=== PATIENT | female | born 1945 | race Caucasian/White ===

== ENCOUNTER 2021-03-14 17:16 | Emergency (ER) | payer MEDICARE, SELFPAY ==
[2021-03-14 17:29] VITALS: BP 211/113; PULSE 72; RESP 15; TEMP 36.8; O2SAT 98; BMI 28.8
[2021-03-14 18:00] VITALS: BP 187/98; PULSE 58; RESP 13; O2SAT 97
[2021-03-14 18:18] LABS: Basophils % 0.2 %; Eosinophils # 0.1 10^3/uL (0.0-0.8); Hematocrit 42.6 % (37.0-47.0); Hemoglobin 14.1 g/dL (11.5-15.3); Mean Corpuscular HGB Conc 33.1 g/dL (30.0-36.0); Mean Corpuscular Hemoglobin 34.3 pg (28.0-34.0); Mean Corpuscular Volume 103.6 fl (81-99); Monocytes # 0.5 10^3/uL (0.2-0.9); Monocytes % 9.9 %; Neutrophils # 2.37 10^3/uL (1.8-7.7); Neutrophils % 47.7 %; Nucleated Red Blood Cells % 0 %; Platelet Count 166 10^3/cmm (130-400); Red Blood Count 4.11 10^6/uL (4.1-5.3); Red Cell Distribution Width 13.1 % (12.1-15.1)
[2021-03-14 18:55] LABS: Anion Gap 14.7 (5-19); Blood Urea Nitrogen 12 mg/dL (8-23); Calcium 9.7 mg/dL (8.5-10.5); Carbon Dioxide 29 mmol/L (22-29); Chloride 98 mmol/L (98-107); Glucose 99 mg/dL (65-115); Osmolality Calculated 286 mOsm/kg (285-295); Potassium 3.7 mmol/L (3.5-5.1); Sodium 138 mmol/L (136-145)
--- NOTE | 2021-03-14 19:20 | W.ED.GENADLT ---
HPI - General Adult General: Chief complaint: General Medical Stated complaint: High Blood Pressure, sent by Clinic Time Seen by Provider: 03/14/21 17:49 History of Present Illness: HPI narrative: CC: Elevated BP HPI: [75]yo patient w/ x hx of HTN currently medically managed (baseline of 140/80), recent L eye cataract surgery presenting to the ED with complaints that her BP is not well controlled. Patient noticed today BP is uncontrolled at >200 systolic in outpatient family clinic. Of note patient started on occular steroid and is concerned that medicine is causing her symptoms. Denies chest pain, SOB, palpitation, N/V/D, pain radiating to the shoulder, headache, vision changes, LOC, or focal neurological deficits. Patient also denies light-headedness, syncope, vertigo abdominal pain, back pain. Tolerating PO meds without issues. Onset: chronic Duration: ongoing Location: home Severity: mild Review of Systems Narrative: Constitutional: No fever, no chills. HEENT: No vision changes CV: No chest pain, no palpitations PULM: No cough, no dyspnea. GI: No abdominal pain, no N/V/D. : No dysuria MSKEL: No edema SKIN: No new rashes, no lesions. NEURO: No headache, no focal weakness. HEME: No visible bruises PSYCH: Normal mood PFSH ED PFSH: Medical History (Updated 03/14/21 @ 19:18 by Moira Briscoe MD) Cataract Hypertensive urgency Social History (Updated 03/14/21 @ 15:55 by Cherri Freeman LPN) Smoking and tobacco status: never smoked Alcohol intake: current Alcohol intake frequency: 0-2 Drinks per Day Alcohol type: wine History of recent travel: No Physical Exam Narrative: EXAM NARRATIVE: Head: Atraumatic Eyes: PERRL, conjunctiva without injection, visual acuity 20/20 in both eyes ENT: Dry membrane moist NECK: Supple without lymphadenopathy LUNGS: LCTAB CV: RRR ABDOMEN: Soft, nontender EXTREMITY: Normal ROM, No track maria, moderate tremulous movements in the UE SKIN: No rash or erythema, no visible patches, no noticeable cellulitis NEURO: AAOX3, mildly agitated and moving all extremities PSYCH: Cooperative with exam Course Vital Signs: Vital signs: Vital Signs Temperature 98.2 F 03/14/21 17:29 Pulse Rate 69 03/14/21 19:38 Respiratory Rate 19 H 03/14/21 19:38 Blood Pressure 187/98 03/14/21 18:00 Pulse Oximetry 98 03/14/21 19:38 MDM - General Adult MDM Narrative: Medical decision making narrative: [75]yo patient w/ hx of HTN currently not on medicine, recent cataract surgery presenting to the ED with high BP reading from outpatient clinic. Rest of exam including full neuro exam intact. Normal visual acuity b/l. No focal occular findings. Given presentation, history and exam, I do not suspect aortic dissection, hypertensive encephalopathy, intracranial hemorrhage, ACS, TIA/CVA, flash pulmonary edema. Intervention: Amlodipine 5mg Patient continues to be symptom-free at this time. Do not suspect an emergent cause. Discussed with the patient the importance of logging BPs and following up with his PCP for adjustment of BP if BP continues to be persistently high. Lab wrokup within including creatine. BP improved to 180 systolic without any intervention. Patient is started on amlodipine 5mg in the ED. Given return instructions. Case was discussed with Dr. Polo from Opthalmology at 7:15pm who informs that there is no need for BP control in the setting of cataract surgery. Unlikely to be topical steroid induced HTN. Patient has no ocular symptoms including new onset of visual blurriness. Visual acuity unchanged in both eyes. Rx: Amlodipine 5mg QDaily x 30 days Based on history, exam, vital signs, and work up (as indicated) I do not suspect an ongoing emergent medical condition, and I believe the patient is safe for discharge and outpatient follow-up. The plan of care was discussed with the patient and all questions were answered. The patient agrees with the plan of care and is discharged in stable condition with verbal and written instructions, and verbalized understanding and ability to comply. I discussed the diagnosis and treatment plan at length with the patient. The patient understands signs and symptoms (including those which are new or worsening) which should prompt return to the ED. The patient is to seek prompt outpatient follow-up as noted verbally and/or in the discharge instructions. At the time of discharge the patient is well-appearing, well-hydrated, non-toxic, and assures appropriate follow-up as an outpatient. Lab Data: Labs: Lab Results 03/14/21 03/14/21 18:03 18:03 WBC 5.0 10^3/uL 10^3/ uL (4.0-10.0) RBC 4.11 10^6/uL 10^6 /uL (4.1-5.3) Hgb 14.1 g/dL g/dL (11.5-15.3) Hct 42.6 % % (37.0-47.0) MCV 103.6 fl H fl (81-99) MCH 34.3 pg H pg (28.0-34.0) MCHC 33.1 g/dL g/dL (30.0-36.0) RDW 13.1 % % (12.1-15.1) Plt Count 166 10^3/cmm 10^3 /cmm (130-400) MPV 11.0 fL H fL (7.4-10.4) Neut % (Auto) 47.7 % % Lymph % (Auto) 41.0 % % [place] % (Auto) 9.9 % % Eos % (Auto) 1.0 % % Baso % (Auto) 0.2 % % Neut # (Auto) 2.37 10^3/uL 10^3 /uL (1.8-7.7) Lymph # (Auto) 2.0 10^3/uL 10^3/ uL (0.8-4.8) [place] # (Auto) 0.5 10^3/uL 10^3/ uL (0.2-0.9) Eos # (Auto) 0.1 10^3/uL 10^3/ uL (0.0-0.8) Baso # (Auto) 0.0 10^3/uL 10^3/ uL (0.0-0.1) Nucleated RBC % (a uto) 0 % % Nucleated RBCs # 0.0 /100WBC /100W BC Sodium 138 mmol/L mmol/L (136-145) Potassium 3.7 mmol/L mmol/L (3.5-5.1) Chloride 98 mmol/L mmol/L (98-107) Carbon Dioxide 29 mmol/L mmol/L (22-29) Anion Gap 14.7 (5-19) BUN 12 mg/dL mg/dL (8-23) Creatinine 0.6 mg/dL mg/dL (0.5-0.9) GFR Calculation Not Reportable Glucose 99 mg/dL mg/dL (65-115) Calculated Osmolal ity 286 mOsm/kg mOsm/ kg (285-295) Calcium 9.7 mg/dL mg/dL (8.5-10.5) Discharge Plan Discharge Patient Disposition: Home Clinical Impression: Hypertension Condition: Stable Prescriptions: New amlodipine 5 mg tablet 5 mg PO DAILY PRN (Reason: elevated blood pressure) 30 Days Qty: 30 RF: 0 Discharge Orders: Discharge ED (Routine); Ordered 03/14/21 Ordered By: Moira Briscoe Discharge Diet: Advance as tolerated Discharge Activity: Resume usual activity Patient Instructions: Hypertension, Hypertension (ED) Activity Restrictions/Additional Instructions: Come back to the emergency room you have any worsening symptoms including uncontrolled blood pressure despite medication use, chest pain, focal weakness in the arms or legs, or any new or concerning complaints. Coding Level of Care Code ED Java Systems Analyst for Jae Michael
[2021-03-14] MEDS: amlodipine 5 mg Tablet PO (19:37)
[2021-03-14 19:38] VITALS: PULSE 69; RESP 19; O2SAT 98
--- NOTE | 2021-03-15 10:08 | DCPLANNER ---
Case manger had message to speak with patient about getting a primary care physician. resident manager spoke with patients , was told that patient has a primary care physician, and has a follow up appointment scheduled.
== END 2021-03-14 19:38 | disposition home or self-care (01) ==
PROVIDERS: Emergency Provider Emergency Medicine
DX: I10 Essential (primary) hypertension (principal)
CPT/HCPCS: 80048; 85025; 99283

== ENCOUNTER → 2021-12-31 11:13 | Outpatient (BNVA) | payer MEDICARE, SELFPAY | PROVIDERS: PCP Family Medicine; Visit Provider Family Medicine | DX: I10 Essential (primary) hypertension (principal); L57.0 Actinic keratosis; R01.1 Cardiac murmur, unspecified; R42 Dizziness and giddiness; T78.40XA Allergy, unspecified, initial encounter | CPT/HCPCS: 80053; 83735; 84443; 85025 ==

== ENCOUNTER 2022-03-20 13:49 | Outpatient (CLI) | payer MEDICARE, SELFPAY ==
--- NOTE | 2022-03-20 15:15 | USCV_ITS ---
Isabel Moise Age: 76 Gender: F : 1945 Exam Date: 03/20/2022 15:30 Ordering Phys: Guerda Ruano MD Technologist: Preethi Ingram [place] [facility] [place]: pre op STAT for surgery on 03/25/2022 BP: 139 / 73 HR: 79 Rhythm: Sinus Technical Quality: Good MEASUREMENTS (Male / Female) Normal Values 2D ECHO LV Diastolic Diameter PLAX 3.7 cm 4.2 - 5.9 / 3.9 - 5.3 cm LV Systolic Diameter PLAX 1.4 cm IVS Diastolic Thickness 1.3 cm 0.6 - 1.0 / 0.6 - 0.9 cm IVS Systolic Thickness 1.5 cm LVPW Diastolic Thickness 0.9 cm 0.6 - 1.0 / 0.6 - 0.9 cm LVPW Systolic Thickness 1.7 cm LVOT Diameter 2.1 cm LV Ejection Fraction 2D Teich 91.6 % LV Ejection Fraction MOD 2C 65.5 % LV Ejection Fraction 2C AL 66.0 % LA Diameter 3.0 cm LA Width 3.4 cm LA Height 4.6 cm RA Width 3.8 cm RA Height 4.3 cm Aorta at Sinotubular Diameter 3.0 cm IVC Diameter 1.0 cm M-MODE Aortic Annulus Diameter 1.9 cm MV E Point Septal Separation 0.4 cm DOPPLER AV Peak Velocity 160.0 cm/s LVOT Peak Velocity 102.0 cm/s AV Area Cont Eq vti 2.8 cm squared AV Area Cont Eq pk 2.2 cm squared MV Peak Velocity 111.0 cm/s MV Area PHT 2.8 cm squared Mitral E to A Ratio 0.8 MV E' Velocity 44.5 cm/s Mitral E to MV E' Ratio 8.4 Mitral E to LV E' Lateral Ratio 7.9 Mitral E to LV E' Septal Ratio 9.1 TR Peak Velocity 117.7 cm/s TR Peak Gradient 5.5 mmHg Right Atrial Pressure 3.0 mmHg Pulmonary Artery Systolic Pressu 8.5 mmHg PV Peak Velocity 97.0 cm/s RV Acceleration Time 0.1 s RV Ejection Time 0.3 s RV AcT/ET 0.4 FINDINGS Left Ventricle Normal left ventricular size and systolic function, EF 62 %. No regional wall motion abnormalities. Grade I/IV diastolic dysfunction (abnormal relaxation filling pattern), normal to mildly elevated filling pressures. Right Ventricle The right ventricle is normal in size and function. Right Atrium Normal right atrial size. Left Atrium Upper limit of normal size Mitral Valve Trace mitral valve regurgitation. Aortic Valve No gross abnormalities noted Tricuspid Valve No gross abnormalities noted Pulmonic Valve Pulmonic valve not well visualized. Pericardium Normal pericardium without effusion. Aorta Normal aortic annulus size. IVC Normal inferior vena cava. CONCLUSIONS Normal left ventricular size and systolic function, EF 62 %. No regional wall motion abnormalities. Grade I/IV diastolic dysfunction (abnormal relaxation filling pattern), normal to mildly elevated filling pressures. Left atrium, upper limit of normal size Trace of mitral valve regurgitation. No previous study is available for comparison. Dr Ricardo Alonso MD FACC (Electronically Signed) Final Date: 21 March 2022 17:39 S
== END 2022-03-20 13:50 | disposition home or self-care (01) ==
LOC: RAD 13:50
PROVIDERS: PCP Family Medicine; Visit Provider Family Medicine
DX: R01.1 Cardiac murmur, unspecified (principal); I10 Essential (primary) hypertension
CPT/HCPCS: 93306

== ENCOUNTER → 2022-10-20 10:15 | Outpatient (BNVA) | payer MEDICARE, SELFPAY | PROVIDERS: PCP Family Medicine; Visit Provider Family Medicine | DX: I10 Essential (primary) hypertension (principal); M19.90 Unspecified osteoarthritis, unspecified site; Z13.220 Encounter for screening for lipoid disorders; Z13.6 Encounter for screening for cardiovascular disorders; I50.32 Chronic diastolic (congestive) heart failure; M77.8 Other enthesopathies, not elsewhere classified | CPT/HCPCS: 80053; 80061 ==

== ENCOUNTER → 2022-10-21 12:54 | Outpatient (BNVA) | payer MEDICARE, SELFPAY | PROVIDERS: PCP Family Medicine; Visit Provider Dermatology | DX: L57.0 Actinic keratosis (principal); Z85.828 Personal history of other malignant neoplasm of skin; L81.4 Other melanin hyperpigmentation; L65.9 Nonscarring hair loss, unspecified; L57.8 Other skin changes due to chronic exposure to nonionizing radiation | CPT/HCPCS: 17000; 17003; 99213 ==

== ENCOUNTER → 2023-04-21 09:44 | Outpatient (BNVA) | payer MEDICARE, SELFPAY | PROVIDERS: PCP Family Medicine; Visit Provider Nurse Practitioner Family | DX: Z85.828 Personal history of other malignant neoplasm of skin (principal); L81.4 Other melanin hyperpigmentation; L65.9 Nonscarring hair loss, unspecified; L57.8 Other skin changes due to chronic exposure to nonionizing radiation; L57.0 Actinic keratosis | CPT/HCPCS: 17000; 99213 ==

== ENCOUNTER → 2023-07-08 09:02 | Outpatient (BNVA) | payer MEDICARE, SELFPAY | PROVIDERS: PCP Family Medicine; Visit Provider Family Medicine | DX: M77.8 Other enthesopathies, not elsewhere classified (principal); M54.2 Cervicalgia; G89.29 Other chronic pain | CPT/HCPCS: 72040; 73030 ==

== ENCOUNTER → 2023-11-04 09:11 | Outpatient (BNVA) | payer MEDICARE, SELFPAY | PROVIDERS: PCP Family Medicine; Visit Provider Family Medicine | DX: I10 Essential (primary) hypertension (principal); M19.90 Unspecified osteoarthritis, unspecified site; I50.32 Chronic diastolic (congestive) heart failure; M77.8 Other enthesopathies, not elsewhere classified; M54.2 Cervicalgia; G89.29 Other chronic pain | CPT/HCPCS: 80053; 80061 ==

== ENCOUNTER → 2024-12-21 09:17 | Outpatient (BNVA) | payer MEDICARE, SELFPAY | PROVIDERS: PCP Family Medicine; Visit Provider Family Medicine | DX: I10 Essential (primary) hypertension (principal) | CPT/HCPCS: 80053; 80061 ==